=== PATIENT | male | born 1985 | race Caucasian/White ===

== ENCOUNTER 2017-02-19 20:42 | Emergency (ER) | payer OTHER ==
[~2017-02-19] VITALS: Ht 175.3 cm; Wt 79.5 kg
[2017-02-19 21:01] VITALS: BP 131/80; PULSE 96; RESP 18; O2SAT 99
--- NOTE | 2017-02-19 22:23 | ED.REPORT ---
HPI-Allergic Reaction Date of Service February 19, 2017 ED Provider: Lamonte Arteaga MD 32 y/o male with a hx of HTN and obstructive sleep apnea presents to the ED complaining of possible allergy reaction, onset just prior to arrival. The pt reports he ordered pizza and was relaxing at home. Within 30 minutes, he began "feeling weird" and experienced dry throat and anxiety. He states he took Benadryl and called EMS, who found his vitals to be normal. He was advised to go to the ED by the EMS. As per his , the pt reported "feeling like a ball of mucus was stuck in his throat". She also reports that his voice sounds more raspy, dry and deep. The pt denies rash, itching, swelling of lips and tongue. He also denies any recent insect bites and taking OTC medications other than the Benadryl. The pt reports he feels better overall but his voice still sounds different. He gets seasonal allergies resulting in itchy eyes. Nursing Notes Stated Complaint: TRAUMA, ALLERGIC REACTION Chief Complaint: Psychiatric Complaint Nursing Notes Reviewed: Yes (HuoBi, chart unintelligible, meds not reconciled) Allergies: Coded Allergies: No Known Allergies (Unverified , 02/19/17) General Time Seen by MD: 22:20 Chief Complaint Allergic reaction Hx Obtained From: Patient, Spouse Arrived By: Walk-in Onset Occurred: 1 - 4 hours ago Context of Onset: Food allergy (Possible food allergy - reaction after eating pizza) Symptom Duration: 1 - 4 hours Severity: Current: No pain currently Severity: Maximum: No pain Recent Healthcare: No recent doctor visit Similar Sx Previous: No Past Medical History Past Medical History Obstructive sleep apnea Reports: Hypertension Past Surgical History none reported Smoking History Unknown if Ever Smoker Social History Other Social History: Good social support Ambulatory Status Independent Review of Systems Denies: swelling of lips and tongue. Reports: change in voice Reports dry throat Skin: Denies Rash Allergy / Immune: Reports: Allergic reaction, Denies: Itching Complete sys rev & neg: except as marked. Physical Exam Initial Vital Signs Vital Signs (First) Date Time Temp Pulse Resp B/P Pulse Ox O2 Delivery O2 Flow Rate FiO2 02/19/17 21:01 36.4 96 18 131/80 99 Room Air Initial VS: Reviewed, Vital signs normal Head / Eyes: Atraumatic, Normocephalic, PERRL ENT: Mucous membranes moist, Conjunctiva normal, No scleral icterus Neck: Supple, Non-tender, Full range of motion Abdomen / GI: Soft, Non-tender, No guarding, No rebound, No distention Extremities: Vascular intact, Neuro intact, No swelling, No tenderness Neurologic: Alert, Oriented, Nonfocal General/Constitutional: Awake, Alert, No acute distress, Cooperative Respiratory / Chest: Atraumatic, Breath sounds NL, Breath sounds = bilat, No respiratory distress, No rales, No rhonchi, No wheezing Voice is not coarse. No SOB. Cardiovascular: Heart rate NL, Regular rhythm, Heart sounds NL, No gallop, No murmurs No extremity edema. Skin: Atraumatic, Color NL, No rash, Warm, Dry Re-Eval/Medical Decision Med Decision/Clinical Course This is a 32-year-old male who presents with a concern for possible allergic reaction. Patient reports 30 minutes after eating jalapeno popper pizza he developed a sense of globus and constriction in his throat, became concerned about allergic reaction. He then took Benadryl and called EMS. EMS evaluated him he had normal vitals, clinically appeared well, had no urticaria, no lip or tongue swelling, no bronchospasm, no vital sign abnormalities-over this history and concerns or symptoms he is referred to the ED for further evaluation. He is feeling better on arrival to the department and began to wonder if there may been a component of anxiety. He does have a history of mild environmental allergies to grasses, but reports are quite minimal and there is a dispute between himself and his regarding the severity of his atopic diathesis. The patient's never had a severe allergic reaction before. The nursing [facility] notes had the Word trauma written in them, along with psychiatric and allergic reaction-but there are no features of trauma, and the only psychiatric issue was his wondering if there is component of anxiety worsening symptoms. Department he appears normal. He is in no distress. He has no visible signs of an acute allergic reaction, it is no bronchospasm, his voice is normal to me , there is no increased work of breathing, no angioedema, no bronchospasm. This point allergic reaction is in the differential, but not definite. I am not finding indication for altered pathology or need for laboratory testing or nor imaging. I think it is reasonable given the possibility of an allergy provide a single dose of dexamethasone. I have explained it is not actually clear the patient experienced a true allergic reaction, and therefore I would not recommend additional testing, lard refiner referral, etc.-the patient was comfortable with this. The patient being discharged and routine precautions. Return precautions reviewed. Source of Hx: Old records Re-Evaluation/Progress : Time of Eval: 22:40 Re-Evaluation/Progress Note: Rechecked pt. Discussed lab, imaging results and diagnosis. Informed the pt of the plan to discharge. Pt understands and agrees with plan. F/U instructions and RTER warning given. All questions addressed. Differential Diagnosis: Positive: Allergic reaction, Negative: Anaphylaxis, Angioedema, Angioneurotic edema, Cellulitis, Drug reaction, Erythema multiforme, Hemolytic uremic syndrome, Santana-Bong syndrome, Urticaria, Viral syndrome Counseled Regarding: Diagnosis, Lab results, Need for follow-up, When/why to return to ED Discharge & Departure Primary Impression: Allergic reaction Encounter type: initial encounter Qualified Code: T78.40XA - Allergy, unspecified, initial encounter Disposition: Home Discharge Condition All VS Reviewed: Yes Condition: Stable Additional Instructions: 1. You did the right thing with the concern for an allergic reaction. 2. However, neither your symptoms nor your exam of the emergency department were formally diagnostic. This may be because you improved with the diphenhydramine (Benadryl) 3. You received a dose of dexamethasone tonight. If you have any symptoms whatsoever tomorrow, go ahead and take a second dose of 10 mg-emptied his syringe into something you drink such as juice, and drink. 4. Activities as tolerated. You should be fine to go to work tomorrow. Return if new or worsening symptoms Referrals: [facility] Scribe Attestation Portions of this note were transcribed by Aline Xie. I, , personally performed the history, physical exam and medical decision-making;I reviewed and confirmed the accuracy of the information in the transcribed note. Signed by Paul Levi. 02/19/17 1121 copies to: [facility] Lamonte Arteaga MD February 19, 2017 22:23 Aline Xie February 19, 2017 23:06
[2017-02-19] MEDS ORDERED: Dexamethasone 20 mg/2 mL Oral Solution PO ONE (22:50)
[2017-02-19 23:26] VITALS: BP 127/73; PULSE 78; O2SAT 95
== END 2017-02-19 23:27 | disposition home or self-care (01) ==
LOC: SED 20:42 → EDBD 20:42 → SED 23:27
DX: J39.2 Other diseases of pharynx (principal); F41.9 Anxiety disorder, unspecified; T78.40XA Allergy, unspecified, initial encounter; X58.XXXA Exposure to other specified factors, initial encounter; Y93.9 Activity, unspecified; Y92.009 Unspecified place in unspecified non-institutional (private) residence as the place of occurrence of the external cause; Y99.8 Other external cause status; I10 Essential (primary) hypertension